=== PATIENT | female | born 1945 | race Caucasian/White ===

== ENCOUNTER → 2016-07-12 | Outpatient (CLI) | payer OTHER ==
[~2016-07-12] MED LIST: AMLODIPINE BESYL5 MG PO; CRESTOR5 MG PO; LISINOPRIL-HCTZ1 T19 PO; LISINOPRIL20 MG PO; SYNTHROID88 MCG PO
--- NOTE | ~2016-07-12 | MY11 ---
[facility] A Service of [facility] RADIOLOGY TEXT RESULTS PATIENT: SANDOVAL HOLM LOCATION: [facility] : 41 UNIT #: [id number] AGE: [address]: LUIS FERNANDO SAAB SEX: F ORDER DR: [id number] [address] [id number] O MR#: [id number] Acc #: [id number] NAME: SANDOVAL HOLM : 1945 SEX: F STUDY DATE/TIME: 07/12/2016 10:02 UNIT: [facility] ROOM: STUDY DESCRIPTION: MY Mammogram Screening Dig [facility] Attending Physician: Luis Fernando Saab M.D. Referring Physician: Luis Fernando Saab M.D. Ordering Physician: Luis Fernando Saab M.D. Primary Care Physician: Luis Fernando Saab M.D. MEDICAL IMAGING REPORT This report is preliminary unless electronic signature is present. EXAM Digital screening mammogram, 07/12/2016 HISTORY 71-year-old woman, no risk elevation. Annual screen. COMPARISON Outside mammograms now available 11/20/2014, [place]. FINDINGS Digital imaging of each breast was completed utilizing screening protocol. Review includes FDA-approved CAD device. Breast parenchyma is partially fatty replaced and mildly heterogeneous with subareolar duct prominence. Small, circumscribed but lobulated opacity is stable mid outer posterior third, left breast. Occasional benign calcification, stable. I see no suspicious mass characteristics. There are no suspicious microcalcifications and no architectural deformity. IMPRESSION Stable benign mammogram. Annual screening recommended. Patients over the age of 40 are entered into a reminder system with target due date for the next mammogram. A result letter will also be sent to the patient. BIRADS: 2 Benign Finding Dictated by... Se Trujillo M.D. [facility] A Service [facility] RADIOLOGY TEXT RESULTS PATIENT: SANDOVAL HOLM LOCATION: [facility] : 41 UNIT #: [id number] AGE: [address]: LUIS FERNANDO SAAB SEX: F ORDER DR: THIS IS AN ELECTRONICALLY VERIFIED REPORT Se Trujillo M.D. at 07/19/2016 8:04 AM DOTTY/fabio TD: 07/18/2016 20:26 JOB #: [id number] MEDICAL IMAGING REPORT Page 1 of 1
== END | disposition home or self-care (01) ==
LOC: SMAM 09:26
DX: Z12.31 Encounter for screening mammogram for malignant neoplasm of breast (principal)
CPT/HCPCS: G0202